=== PATIENT | male | born 2000 | race Caucasian/White ===

== ENCOUNTER 2022-12-03 15:00 | Emergency (ER) | payer MEDICAID, SELFPAY ==
--- NOTE | 2022-12-03 15:05 | EXP.UTC ---
Discharge Plan Disposition Patient Disposition: Home, Self-Care Clinical Impressions Clinical Impression: Need for Tdap vaccination Discharge ED Provider: Ladi Obrien [facility] [place] HPI General Stated complaint: AO 12/03@1400 Lac to left hand Related Data Allergies Allergy/AdvReac Type Severity Reaction Status Date / Time No Known Allergies Allergy Verified 12/03/22 15:31 [facility] Disclaimer: The information contained in this section may have been updated after the patient was seen, as this information can be updated by other users.
[2022-12-03 15:25] VITALS: BP 131/81; PULSE 81; RESP 19; TEMP 36.7; O2SAT 98; BMI 38.4
[2022-12-03 15:42] VITALS: BP 131/81; PULSE 81; RESP 19; TEMP 36.7; O2SAT 98
== END 2022-12-03 15:45 | disposition home or self-care (01) ==
PROVIDERS: Emergency Provider Physician Assistant
DX: Z23 Encounter for immunization (principal)
CPT/HCPCS: 90715; 96372; 99212; G0463